=== PATIENT | female | born 1950 | race Caucasian/White ===

== ENCOUNTER → 2021-10-01 14:05 | Outpatient (BNVA) | payer MEDICARE, OTHER, SELFPAY | PROVIDERS: Family Provider Family Medicine; PCP Family Medicine; Visit Provider Surgery | DX: K21.9 Gastro-esophageal reflux disease without esophagitis (principal) | CPT/HCPCS: 99213 ==

== ENCOUNTER 2022-03-18 16:28 | Emergency (ER) | payer MEDICARE, OTHER, SELFPAY ==
[2022-03-18 16:32] VITALS: BP 159/81; PULSE 54; RESP 18; TEMP 36.7; O2SAT 97; BMI 31.1
--- NOTE | 2022-03-18 16:36 | ECG_ITS ---
[facility] Test Date: 2022-03-18 Pat Name: Chloé Ye Department: Room: Gender: Female Tobacco Buyer: : 1950 Requested By: Zac Collier Order Number: [id number] Micha MD: Shawna Gutiérrez M.D. Measurements Intervals [place] Rate: 54 P: 59 NE: 165 QRS: -57 QRSD: 91 T: 57 QT: 439 QTc: 419 Interpretive Statements SINUS BRADYCARDIA LEFT ANTERIOR FASCICULAR BLOCK [QRS AXIS <= -45, QR IN I, RS IN II] VOLTAGE CRITERIA FOR LVH No previous ECG available for comparison Electronically Signed On 03-19-2022 12:55:09 CDT by Shawna Gutiérrez M.D. [id number]
--- NOTE | 2022-03-18 16:44 | XRR_ITS ---
PROCEDURE INFORMATION: Exam: XR Chest Exam date and time: 03/18/2022 6:23 PM Age: 71 years old Clinical indication: Chest pressure and chest wall pain; Prior surgery; Surgery type: Had monitor inserted in heart; Additional info: Cp TECHNIQUE: Imaging protocol: Radiologic exam of the chest. Views: 1 view. COMPARISON: No relevant prior studies available. FINDINGS: Tubes, catheters and devices: Loop recorder device noted in the left chest wall. Lungs: Unremarkable. No consolidation. Pleural spaces: Unremarkable. No pleural effusion. No pneumothorax. Heart/Mediastinum: Unremarkable. No cardiomegaly. Bones/joints: Unremarkable. XR/XR chest 1V portable [id number] IMPRESSION: No acute findings.
[2022-03-18 17:49] LABS: Basophils % 0.7 %; Eosinophils # 0.6 10^3/uL (0.0-0.8); Eosinophils % 9.2 %; Hemoglobin 14.1 g/dL (11.5-15.3); Lymphocytes # 1.9 10^3/uL (0.8-4.8); Lymphocytes % 30.8 %; Mean Corpuscular HGB Conc 32.8 g/dL (30.0-36.0); Mean Corpuscular Hemoglobin 30.2 pg (28.0-34.0); Mean Corpuscular Volume 92.1 fl (81-99); Mean Platelet Volume 9.9 fL (7.4-10.4); Monocytes # 0.7 10^3/uL (0.2-0.9); Monocytes % 12.1 %; Neutrophils # 2.87 10^3/uL (1.8-7.7); Neutrophils % 46.9 %; Nucleated Red Blood Cells % 0 %; Platelet Count 245 10^3/cmm (130-400); Red Blood Count 4.67 10^6/uL (4.1-5.3); Red Cell Distribution Width 13.1 % (12.1-15.1); White Blood Count 6.1 10^3/uL (4.0-10.0)
[2022-03-18 18:18] LABS: Troponin(5th) Baseline 7 ng/L (0-10)
--- NOTE | 2022-03-18 18:21 | W.ED.CHESTPA ---
HPI - Chest Pain General: Chief Complaint: Chest Pain Stated Complaint: chest pain Time Seen by Provider: 03/18/22 18:09 History of Present Illness: Ms. Ye is a 71-year-old lady who presents to the emergency department due to chest discomfort. She reports onset of symptoms last night with left chest pain radiating down the left arm. This was with exertion however is currently resolved. She did have associated lightheaded feeling. Does report a history of similar episodes and currently has a loop recorder implanted. Otherwise denies significant changes in health. Denies other typical cardiac features. No other specific changes in health, exacerbating, or alleviating factors identified. Onset (ago): day(s) Timing of current episode: constant Prior episodes: Yes Onset: during exertion Pain location: left chest Pain radiation: left arm Severity: moderate Quality: aching Associated symptoms: Reports other (Lightheadedness) Review of Systems General: Reports: 10 or more systems reviewed and unremarkable except in HPI and below PFSH ED PFSH: Medical History (Updated 03/26/22 @ 00:01 by ) Dysphagia Gastritis Gastroesophageal reflux disease GERD (gastroesophageal reflux disease) Hiatal hernia Hypothyroidism Stroke Surgical History H/O bladder repair surgery H/O: hysterectomy History of tonsillectomy History of total left knee replacement History of total right knee replacement Family History Sister Diabetes Father Cancer Mother Cancer Social History Smoking and tobacco status: never smoked Alcohol intake: current Alcohol intake frequency: holidays/special occasions only Current occupational status: unemployed Physical Exam Const: COMMON NORMALS: alert GENERAL APPEARANCE: cooperative and well developed HENMT: COMMON NORMALS: normocephalic HEAD & SCALP: normocephalic THROAT: posterior oropharynx normal OTHER: Mild inferior left periorbital ecchymosis Eye: COMMON NORMALS: conjunctivae normal CONJUNCTIVA: Yes conjunctivae normal SCLERA: sclerae normal Neck/C-Spine: COMMON NORMALS: supple GENERAL: Yes trachea midline Resp: COMMON NORMALS: normal respiratory effort EFFORT & INSPECTION: Yes able to speak in complete sentences Cardio: COMMON NORMALS: regular rate and regular rhythm RATE: regular rate RHYTHM: regular rhythm GI: COMMON NORMALS: Soft to palpation PALPATION: Yes Soft to palpation and No Tenderness to palpation present (GI) Extremity: GENERAL: Yes normal exam except as noted and No edema Neuro: COMMON NORMALS: moves all extremities SENSORIUM/ORIENTATION: Yes alert and No Orientation impaired Psych: COMMON NORMALS: mental status grossly normal and Normal thought process present THOUGHT PROCESS: Normal thought process present Course ED course: - Patient was seen and evaluated by me at bedside - Patient placed on cardiac monitors, IV access obtained - Initial evaluation notable for exam as above - Labs and xrays personally interpreted by me. EKG notable for sinus bradycardia -Aspirin given - Labs notable for no leukocytosis, normal hemoglobin. Metabolic panel without significant derangement. Delta troponin at 2 hours is negative. D-dimer negative. - Imaging notable for no lobar consolidation or pneumothorax on chest x-ray. Given contusion/ecchymosis CT of the face was ordered and negative for acute pathology - Upon serial reexamination after treatment the patient was improved - Based on patient history, evaluation, and testing as interpreted the most likely cause of the patient's condition is chest pain of uncertain etiology - The results of ED evaluation were discussed with the patient including possible disposition options. I discussed risk stratification by heart score and estimated risk of major adverse cardiac events. The patient wishes to proceed with outpatient management. She has a outpatient stress test already scheduled. I discussed prescriptions and/or symptomatic cares (if applicable) including appropriate and responsible use, followup plan, and return precautions. The patient verbalized understanding and felt safe for discharge. - Patient discharged in satisfactory condition. Note: Click bubbles or prepopulated mullins in note writing are used for assistance with data collection and billing and are inherently more limited than narrative and other text portions of this note. Please use narrative for additional clinical history and defer to narrative/free test for any case of contradictory information. If information appears in only free text or click bubble it should be considered present or absent as reported. Please contact note principal technical writer for clarifications of clinical information or contradictory information. MDM is a brief summary, contradictory or erroneous seeming information should be clarified and full note should be reviewed. Vital Signs: Vital signs: Vital Signs Temperature 98.1 F 03/18/22 16:32 Pulse Rate 55 L 03/18/22 22:01 Respiratory Rate 16 03/18/22 22:01 Blood Pressure 168/75 03/18/22 22:01 Pulse Oximetry 97 03/18/22 22:01 Oxygen Delivery Me thod 03/18/22 18:38 MDM - Chest Pain Medical Decision Making 71-year-old lady presenting with chest pain. Negative ED evaluation for acute pathology requiring intervention. Patient is not low risk by heart score but prefers outpatient management. Strict follow-up plans and return precautions discussed. Medical Records I reviewed the patient's medical records. Lab Data I reviewed the patient's lab results. : 03/18/22 17:41 03/18/22 17:41 Radiology Impressions Chest X-Ray 03/18/22 16:44 IMPRESSION: No acute findings. Face CT 03/18/22 18:34 IMPRESSION: No acute findings. Laboratory Results WBC 6.1 10^3/uL (4.0-10.0) 03/18/22 17:41 RBC 4.67 10^6/uL (4.1-5.3) 03/18/22 17:41 Hgb 14.1 g/dL (11.5-15.3) 03/18/22 17:41 Hct 43.0 % (37.0-47.0) 03/18/22 17:41 MCV 92.1 fl (81-99) 03/18/22 17:41 MCH 30.2 pg (28.0-34.0) 03/18/22 17:41 MCHC 32.8 g/dL (30.0-36.0) 03/18/22 17:41 RDW 13.1 % (12.1-15.1) 03/18/22 17:41 Plt Count 245 10^3/cmm (130-400) 03/18/22 17:41 MPV 9.9 fL (7.4-10.4) 03/18/22 17:41 Neut % (Auto) 46.9 % 03/18/22 17:41 Lymph % (Auto) 30.8 % 03/18/22 17:41 [place] % (Auto) 12.1 % 03/18/22 17:41 Eos % (Auto) 9.2 % 03/18/22 17:41 Baso % (Auto) 0.7 % 03/18/22 17:41 Neut # (Auto) 2.87 10^3/uL (1.8-7.7) 03/18/22 17:41 Lymph # (Auto) 1.9 10^3/uL (0.8-4.8) 03/18/22 17:41 [place] # (Auto) 0.7 10^3/uL (0.2-0.9) 03/18/22 17:41 Eos # (Auto) 0.6 10^3/uL (0.0-0.8) 03/18/22 17:41 Baso # (Auto) 0.0 10^3/uL (0.0-0.1) 03/18/22 17:41 Nucleated RBC % (auto) 0 % 03/18/22 17:41 Nucleated RBCs # 0.0 /100WBC 03/18/22 17:41 D-Dimer 0.37 ug/mIFEU (0-0.59) 03/18/22 17:41 Sodium 140 mmol/L (136-145) 03/18/22 17:41 Potassium 3.9 mmol/L (3.5-5.1) 03/18/22 17:41 Chloride 103 mmol/L (98-107) 03/18/22 17:41 Carbon Dioxide 30 mmol/L (22-29) H 03/18/22 17:41 Anion Gap 10.9 (5-19) 03/18/22 17:41 BUN 8 mg/dL (8-23) 03/18/22 17:41 Creatinine 0.6 mg/dL (0.5-0.9) 03/18/22 17:41 GFR Calculation Not Reportable 03/18/22 17:41 Glucose 87 mg/dL (65-115) 03/18/22 17:41 Calculated Osmolality 288 mOsm/kg (285-295) 03/18/22 17:41 Calcium 9.3 mg/dL (8.5-10.5) 03/18/22 17:41 Total Bilirubin 0.4 mg/dL (0.15-1.2) 03/18/22 17:41 AST 17 U/L (0-32) 03/18/22 17:41 ALT 13 U/L (0-33) 03/18/22 17:41 Alkaline Phosphatase 57 U/L (35-105) 03/18/22 17:41 Troponin T Baseline 7 ng/L (0-10) 03/18/22 17:41 Troponin T 120 Minute 7.61 ng/L (0-10) 03/18/22 19:59 Delta Troponin T 0.61 ABS# (0-10) 03/18/22 19:59 NT-Pro-B Natriuret Pep 143 pg/mL (0-125) H 03/18/22 17:41 Total Protein 6.5 g/dL (6.6-8.7) L 03/18/22 17:41 Albumin 3.9 g/dL (3.5-5.2) 03/18/22 17:41 Globulin 2.6 g/dL (1.3-4.6) 03/18/22 17:41 Discharge Plan Discharge Patient Disposition: Home Clinical Impression: Chest pain Condition: Stable Prescriptions: No Action levothyroxine PO pantoprazole PO prednisone 10 mg tablet 10 mg PO DAILY Qty: 42 0RF Discharge Orders: Discharge ED (Routine); Ordered 03/18/22 Ordered By: Rajesh Wilkerson Referrals: Sean Pereira MD [Primary Care Provider] - Patient Instructions: Chest Pain (ED) Activity Restrictions/Additional Instructions: Thank you for visiting the emergency department. You were seen evaluated for chest pain. The exact cause of your symptoms is unclear though as discussed does require further evaluation which you are choosing to do in the outpatient setting. Please follow-up with your primary care provider and please ensure that you complete your stress test and echocardiogram. Return to the emergency department for worsening symptoms or anything else that you are concerned about and feel needs emergency department evaluation. Coding Level of Care Code ED Mechanical Laboratory Technician for Deepthi Fwd Exam Comprehensive
[2022-03-18 18:33] LABS: Alanine Aminotransferase 13 U/L (0-33); Albumin Level 3.9 g/dL (3.5-5.2); Alkaline Phosphatase 57 U/L (35-105); Aspartate Amino Transferase 17 U/L (0-32); Blood Urea Nitrogen 8 mg/dL (8-23); Calcium 9.3 mg/dL (8.5-10.5); Carbon Dioxide 30 mmol/L (22-29); Chloride 103 mmol/L (98-107); Globulin 2.6 g/dL (1.3-4.6); Glucose 87 mg/dL (65-115); NT Pro B Type Natriuretic Pept 143 pg/mL (0-125); Osmolality Calculated 288 mOsm/kg (285-295); Sodium 140 mmol/L (136-145); Total Bilirubin 0.4 mg/dL (0.15-1.2); Total Protein 6.5 g/dL (6.6-8.7)
--- NOTE | 2022-03-18 18:34 | CTR_ITS ---
PROCEDURE INFORMATION: Exam: CT Maxillofacial Without Contrast Exam date and time: 03/18/2022 8:49 PM Age: 71 years old Clinical indication: Eye pain; Left; Additional info: L periorbital pain and echymosis TECHNIQUE: Imaging protocol: Computed tomography of the of the face without contrast. Radiation optimization: All CT scans at this facility use at least one of these dose optimization techniques: automated exposure control; mA and/or kV adjustment per patient size (includes targeted exams where dose is matched to clinical indication); or iterative reconstruction. COMPARISON: No relevant prior studies available. RADIATION DOSE METRICS: Total DLP (mGy-cm): 537.98 FINDINGS: Orbital cavities: Orbits are normal. Globes are unremarkable. Bones/joints: No acute fracture. Paranasal sinuses: Normal. No air-fluid levels. Soft tissues: Unremarkable. CT/CT facial bones wo con* [id number] IMPRESSION: No acute findings.
[2022-03-18 18:38] VITALS: BP 205/88; PULSE 54; RESP 16; O2SAT 99
[2022-03-18 18:38] LABS: Anion Gap 10.9 (5-19); Potassium 3.9 mmol/L (3.5-5.1)
--- NOTE | 2022-03-18 18:44 | ECG_ITS ---
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 Measurements Intervals [place] Rate: 50 P: 58 [place]: 174 QRS: -48 QRSD: 109 T: 44 QT: 470 QTc: 429 Interpretive Statements SINUS BRADYCARDIA LEFT ANTERIOR FASCICULAR BLOCK MODERATE VOLTAGE CRITERIA FOR LVH, CONSIDER NORMAL VARIANT Compared to ECG 03/18/2022 16:36:11 No significant changes Electronically Signed On 03-19-2022 12:59:20 CDT by Shawna Gutiérrez M.D. [id number]
[2022-03-18] MEDS: aspirin 81 mg Chew Tablet 324 MG PO (18:45)
[2022-03-18 19:02] LABS: D Dimer 0.37 ug/mIFEU (0-0.59)
[2022-03-18 20:38] LABS: Troponin 5 2HR 7.61 ng/L (0-10)
[2022-03-18 21:23] LABS: Troponin 5 2HR Delta 0.61 ABS# (0-10)
[2022-03-18 22:01] VITALS: BP 168/75; PULSE 55; RESP 16; O2SAT 97
== END 2022-03-18 22:02 | disposition home or self-care (01) ==
PROVIDERS: Family Medicine; Emergency Provider Emergency Medicine; PCP Family Medicine Sports Medicine
DX: R07.9 Chest pain, unspecified (principal); Z86.73 Personal history of transient ischemic attack (TIA), and cerebral infarction without residual deficits
CPT/HCPCS: 36415; 70486; 71045; 80053; 83880; 84484; 85025; 85378; 93005; 99285

== ENCOUNTER → 2022-05-25 14:53 | Outpatient (BNVA) | payer MEDICARE, OTHER, SELFPAY | PROVIDERS: PCP Family Medicine Sports Medicine; Visit Provider Podiatrist Foot & Ankle Surgery | DX: M72.2 Plantar fascial fibromatosis (principal); M21.41 Flat foot [pes planus] (acquired), right foot; M21.42 Flat foot [pes planus] (acquired), left foot; M19.071 Primary osteoarthritis, right ankle and foot; M19.072 Primary osteoarthritis, left ankle and foot | CPT/HCPCS: 99214 ==

== ENCOUNTER 2023-01-05 06:00 | Outpatient (RCR) | payer MEDICARE, OTHER, SELFPAY | END 2023-02-04 23:59 | disposition home or self-care (01) | LOC: TPT 06:00 | PROVIDERS: Visit Provider Orthopaedic Surgery | DX: M25.562 Pain in left knee (principal) | CPT/HCPCS: 97110; 97163 ==

== ENCOUNTER 2023-02-05 06:00 | Outpatient (RCR) | payer MEDICARE, OTHER, SELFPAY | END 2023-03-06 23:59 | disposition home or self-care (01) | LOC: TPT 06:00 | PROVIDERS: Visit Provider Orthopaedic Surgery | DX: Z47.1 Aftercare following joint replacement surgery (principal); Z96.652 Presence of left artificial knee joint | CPT/HCPCS: 97110 ==

== ENCOUNTER 2023-03-07 06:00 | Outpatient (RCR) | payer MEDICARE, OTHER, SELFPAY | END 2023-03-09 23:59 | disposition home or self-care (01) | LOC: TPT 06:00 | PROVIDERS: Visit Provider Orthopaedic Surgery | DX: Z96.652 Presence of left artificial knee joint (principal); M25.562 Pain in left knee | CPT/HCPCS: 97110 ==

== ENCOUNTER 2023-03-29 17:45 | Emergency (ER) | payer MEDICARE, OTHER, SELFPAY ==
[2023-03-29 17:56] VITALS: BP 168/77; PULSE 61; RESP 15; TEMP 37.1; O2SAT 96; BMI 30.9
--- NOTE | 2023-03-29 18:23 | XRR_ITS ---
PROCEDURE INFORMATION: Exam: XR Chest Exam date and time: 03/29/2023 6:43 PM Age: 72 years old Clinical indication: Shortness of breath; Additional info: Syncope TECHNIQUE: Imaging protocol: Radiologic exam of the chest. Views: 1 view. COMPARISON: CR XR chest 1V portable [id number] 03/18/2022 6:23 PM FINDINGS: Tubes, catheters and devices: A metallic device projects over upper left heart border, similar to the finding on 03/18/2022. Lungs: There is no consolidation. Pleural spaces: There is no pleural effusion or pneumothorax. Heart/Mediastinum: Cardiomediastinal contours are unremarkable. Bones/joints: Bones are unremarkable. XR/XR chest 1V portable [id number] IMPRESSION: No acute findings.
--- NOTE | 2023-03-29 18:29 | ECG_ITS ---
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 Measurements Intervals [place] Rate: 56 P: 50 [place]: 175 QRS: -43 QRSD: 108 T: 50 QT: 470 QTc: 455 Interpretive Statements SINUS BRADYCARDIA LEFT AXIS DEVIATION [QRS AXIS < -30] PATTERN CONSISTENT WITH PULMONARY DISEASE VOLTAGE CRITERIA FOR LVH [MEETS CRITERIA IN ONE OF: R(aVL), S(V1), R(V5), R(V5/V6)+S(V1)] Compared to ECG 03/18/2022 21:15:19 Left-axis deviation now present Left anterior fascicular block no longer present Electronically Signed On 03-29-2023 21:14:50 CDT by Shawna Gutiérrez M.D. [id number]
[2023-03-29 18:49] LABS: Basophils % 0.4 %; Eosinophils # 0.3 10^3/uL (0.0-0.8); Eosinophils % 3.7 %; Lymphocytes # 1.1 10^3/uL (0.8-4.8); Lymphocytes % 14.5 %; Mean Corpuscular HGB Conc 33.7 g/dL (30-55); Mean Corpuscular Hemoglobin 30.7 pg (27-33); Mean Corpuscular Volume 91.1 fl (85-98); Mean Platelet Volume 10.2 fL (7.4-10.4); Monocytes # 0.5 10^3/uL (0.2-0.9); Monocytes % 6.1 %; Neutrophils # 5.87 10^3/uL (1.8-7.7); Nucleated Red Blood Cells % 0 %; Platelet Count 179 10^3/cmm (157-399); Red Blood Count 4.72 10^6/uL (3.85-5.65); White Blood Count 7.82 10^3/uL (3.29-11.43)
--- NOTE | 2023-03-29 18:52 | W.ED.SYNCOPE ---
HPI - Syncope General: Chief Complaint: Syncope Stated Complaint: sent by Chaz/high bp Time Seen by Provider: 03/29/23 18:02 History of Present Illness: Patient presents to the ER with complaints of near syncope earlier today at the [facility]. There clinic sent her here. Patient said at that time she was dizzy and lightheaded and just did not feel good. Patient did not pass out. Patient has had these episodes prior and been worked up. Patient does have a history of an old CVA with no deficit. Patient does have a loop recorder implanted and she transmits it every night. Patient says she is back to normal currently with no complaints. Patient is on 81 mg aspirin daily. Review of Systems General: Reports: 10 or more systems reviewed and unremarkable except in HPI and below PFSH ED PFSH: Medical History Dysphagia Gastritis Gastroesophageal reflux disease GERD (gastroesophageal reflux disease) Hiatal hernia Hypothyroidism Stroke Surgical History H/O bladder repair surgery H/O: hysterectomy History of tonsillectomy History of total left knee replacement History of total right knee replacement Family History Sister Diabetes Father Cancer Mother Cancer Social History Smoking and tobacco/nicotine status: never used tobacco/nicotine Second hand smoke exposure: No Alcohol intake: former Substance/Drug Use: never Adopted: No Caregiver/support person: No Lives independently: Yes Current occupational status: unemployed Pets and animals: No Do you think of yourself as: Straight/Heterosexual Current gender identity: Female Female Reproductive History: Spontaneous abortions: No Physical Exam Const: COMMON NORMALS: no acute distress, average body habitus, patient oriented x3, no limitations, healthy appearing, alert and well nourished HENMT: COMMON NORMALS: normocephalic, atraumatic, hearing grossly normal bilaterally, external ears normal, Normal external nose present, moist oral mucous membranes and oropharynx normal HEAD & SCALP: normocephalic and atraumatic NOSE: Normal external nose present EXTERNAL EAR: Yes external ears normal Eye: COMMON NORMALS: Equal, round and reactive pupils present, EOMs intact bilaterally, conjunctivae normal and no scleral icterus CONJUNCTIVA: Yes conjunctivae normal PUPIL: Yes Equal, round and reactive pupils present Neck/C-Spine: COMMON NORMALS: full ROM, no lymphadenopathy, supple, no meningeal signs, no JVD and Thyroid normal THYROID: Thyroid normal Chest: COMMONS NORMALS: normal inspection of the chest and normal palpation of entire chest wall Resp: COMMON NORMALS: normal respiratory effort, No retractions, No use of accessory muscles and clear to auscultation bilaterally AUSCULTATION: clear to auscultation bilaterally Cardio: COMMON NORMALS: no JVD, regular rate, regular rhythm, S1 normal heart sound present, S2 normal heart sound present, No gallops present (Cardio), No clicks present (Cardio), No murmurs present (Cardio) and No rub (Cardio) RATE: regular rate RHYTHM: regular rhythm HEART SOUNDS: S1 normal heart sound present and S2 normal heart sound present GI: COMMON NORMALS: Normal to inspection, nondistended, normoactive bowel sounds present, Soft to palpation, non-tender, No hepatosplenomegaly present and no masses PALPATION: Yes Soft to palpation and Yes No hepatosplenomegaly present : COMMON NORMALS: Yes no CVA tenderness BLADDER/KIDNEY EXAM: Yes no CVA tenderness Back/Pelvis: COMMON NORMALS: no CVA tenderness Neuro: COMMON NORMALS: patient oriented x3 SENSORIUM/ORIENTATION: Yes alert MENINGEAL SIGNS: Yes no meningeal signs Course Vital Signs: Vital signs: Vital Signs Temperature 98.8 F 03/29/23 17:56 Pulse Rate 61 03/29/23 17:56 Respiratory Rate 15 03/29/23 17:56 Blood Pressure 168/77 03/29/23 17:56 Pulse Oximetry 96 03/29/23 17:56 Oxygen Delivery Me thod Room Air 03/29/23 17:56 MDM - Syncope Medical Decision Making Presents today with near syncope. Patient has no other complaints and no acute findings. Lab work was essentially benign as well as chest x-ray and EKG does show bradycardia patient also has a implantable loop recorder that she gets downloaded every night. Patient will be discharged home with a diagnosis of near syncope. Patient should follow-up with her PCP and/or ecommerce marketing specialist within the next week. Differential Diagnosis Unlikely syncope due to orthostatic hypotension, vasovagal syncope, complete atrioventricular block, subarachnoid hemorrhage, pulmonary embolism or dehydration Medical Records I reviewed the patient's medical records. Lab Data I reviewed the patient's lab results. 03/29/23 18:44 03/29/23 18:44 Radiology Impressions Chest X-Ray 03/29/23 18:23 IMPRESSION: No acute findings. Laboratory Results WBC 7.82 10^3/uL (3.29-11.43) 03/29/23 18:44 RBC 4.72 10^6/uL (3.85-5.65) 03/29/23 18:44 Hgb 14.50 g/dL (11.27-16.99) 03/29/23 18:44 Hct 43.0 % (36-47) 03/29/23 18:44 MCV 91.1 fl (85-98) 03/29/23 18:44 MCH 30.7 pg (27-33) 03/29/23 18:44 MCHC 33.7 g/dL (30-55) 03/29/23 18:44 RDW 13.0 % (12.1-15.1) 03/29/23 18:44 Plt Count 179 10^3/cmm (157-399) 03/29/23 18:44 MPV 10.2 fL (7.4-10.4) 03/29/23 18:44 Neut % (Auto) 75.0 % 03/29/23 18:44 Lymph % (Auto) 14.5 % 03/29/23 18:44 [place] % (Auto) 6.1 % 03/29/23 18:44 Eos % (Auto) 3.7 % 03/29/23 18:44 Baso % (Auto) 0.4 % 03/29/23 18:44 Neut # (Auto) 5.87 10^3/uL (1.8-7.7) 03/29/23 18:44 Lymph # (Auto) 1.1 10^3/uL (0.8-4.8) 03/29/23 18:44 [place] # (Auto) 0.5 10^3/uL (0.2-0.9) 03/29/23 18:44 Eos # (Auto) 0.3 10^3/uL (0.0-0.8) 03/29/23 18:44 Baso # (Auto) 0.0 10^3/uL (0.0-0.1) 03/29/23 18:44 Nucleated RBC % (auto) 0 % 03/29/23 18:44 Nucleated RBCs # 0.0 /100WBC 03/29/23 18:44 Sodium 138 mmol/L (136-145) 03/29/23 18:44 Potassium 3.6 mmol/L (3.5-5.1) 03/29/23 18:44 Chloride 100 mmol/L (98-107) 03/29/23 18:44 Carbon Dioxide 31 mmol/L (22-29) H 03/29/23 18:44 Anion Gap 10.6 (5-19) 03/29/23 18:44 BUN 9 mg/dL (8-23) 03/29/23 18:44 Creatinine 0.6 mg/dL (0.5-0.9) 03/29/23 18:44 GFR Calculation Not Reportable 03/29/23 18:44 Glucose 153 mg/dL (65-115) H 03/29/23 18:44 Calculated Osmolality 288 mOsm/kg (285-295) 03/29/23 18:44 Calcium 8.5 mg/dL (8.5-10.5) 03/29/23 18:44 Total Bilirubin 0.9 mg/dL (0.15-1.2) 03/29/23 18:44 AST 28 U/L (0-32) 03/29/23 18:44 ALT 33 U/L (0-33) 03/29/23 18:44 Alkaline Phosphatase 56 U/L (35-105) 03/29/23 18:44 Total Protein 6.8 g/dL (6.6-8.7) 03/29/23 18:44 Albumin 4.6 g/dL (3.5-5.2) 03/29/23 18:44 Globulin 2.2 g/dL (1.3-4.6) 03/29/23 18:44 Urine Color Straw (Yellow) 03/29/23 18:58 Urine Appearance Clear (CLEAR) 03/29/23 18:58 Urine pH 7 (5-7) 03/29/23 18:58 Ur Specific [place] 1.005 (1.005-1.030) 03/29/23 18:58 Urine Protein Neg (Negative) 03/29/23 18:58 Urine Glucose (UA) Norm (Normal) 03/29/23 18:58 Urine Ketones Negative (Negative) 03/29/23 18:58 Urine Blood Neg (Negative) 03/29/23 18:58 Urine Nitrate Negative (Negative) 03/29/23 18:58 Urine Bilirubin Neg (Negative) 03/29/23 18:58 Urine Urobilinogen Norm mg/dL (Negative) 03/29/23 18:58 Ur Leukocyte Esterase Negative (Negative) 03/29/23 18:58 All radiology interpretation(s) finalized by discharge EKG Data EKG 1: I personally reviewed and interpreted this EKG as follows: EKG interpretation date: 03/29/23 EKG interpretation time: 18:29 Prior EKG tracings: not available for review Interpretation: EKG showed ventricular rate 56 bpm, [place] interval 175, QRS duration 108, QTc of 461, sinus bradycardia, left axis deviation, Discharge Plan Discharge Patient Disposition: Home Clinical Impression: Near syncope Condition: Stable Prescriptions: No Action diclofenac sodium [Voltaren Arthritis Pain] 1 % gel 2 g topical QID Qty: 100 0RF Rx Instructions: apply to single elbow, wrist or hand; for hand includes palm/fingers/back of hand aspirin [Adult Low Dose Aspirin] 81 mg tablet,delayed release (DR/EC) 81 mg PO DAILY (DME) Custom Sole Supports- 3/4 length sports style See Rx Instructions .Route .MEDSUPPLY Qty: 1 0RF Rx Instructions: As directed by TOOTIE&O pantoprazole 40 mg tablet,delayed release (DR/EC) 40 mg PO DAILY Qty: 90 0RF Discharge Orders: Discharge ED (Routine); Ordered 03/29/23 Ordered By: Patrick Yeung Referrals: Vania Godoy FNP [Primary Care Provider] - 1 week Patient Instructions: Near Syncope (ED) Activity Restrictions/Additional Instructions: Please follow-up with your family practice physician within the next 7 to 10 days as needed for further evaluation and treatment. Please feel free to return to the ER if symptoms return and/or worsen. Coding Level of Care Code ED Receivable Manager for Deepthi Osman
[2023-03-29 19:09] LABS: Alanine Aminotransferase 33 U/L (0-33); Albumin Level 4.6 g/dL (3.5-5.2); Alkaline Phosphatase 56 U/L (35-105); Anion Gap 10.6 (5-19); Aspartate Amino Transferase 28 U/L (0-32); Blood Urea Nitrogen 9 mg/dL (8-23); Calcium 8.5 mg/dL (8.5-10.5); Carbon Dioxide 31 mmol/L (22-29); Chloride 100 mmol/L (98-107); Globulin 2.2 g/dL (1.3-4.6); Glucose 153 mg/dL (65-115); Osmolality Calculated 288 mOsm/kg (285-295); Potassium 3.6 mmol/L (3.5-5.1); Sodium 138 mmol/L (136-145); Total Bilirubin 0.9 mg/dL (0.15-1.2); Total Protein 6.8 g/dL (6.6-8.7)
[2023-03-29 19:28] LABS: Add Urine Microscopic? NO; Charge for UA Resulting for Rev
[2023-03-29 19:36] LABS: Protein Urine Neg (Negative); Specific Gravity, Urine 1.005 (1.005-1.030); Urine Appearance Clear (CLEAR); Urine Color Straw (Yellow); pH Urine 7 (5-7)
[2023-03-29 19:37] LABS: Bilirubin Urine Neg (Negative); Blood Urine Neg (Negative); Glucose Urine UA Norm (Normal); Ketones Urine Negative (Negative); Leukocyte Esterase Urine Negative (Negative); Nitrate Urine Negative (Negative); Urobilinogen Urine Norm (Negative)
[2023-03-29 20:06] VITALS: BP 183/65; PULSE 50; RESP 16; O2SAT 98
[2023-03-29 20:26] VITALS: BP 183/65; PULSE 50; RESP 16; TEMP 37.1; O2SAT 98
== END 2023-03-29 20:27 | disposition home or self-care (01) ==
PROVIDERS: Emergency Provider Emergency Medicine; PCP Nurse Practitioner Family
DX: R55 Syncope and collapse (principal); Z79.82 Long term (current) use of aspirin; Z86.73 Personal history of transient ischemic attack (TIA), and cerebral infarction without residual deficits
CPT/HCPCS: 71045; 80053; 81003; 85025; 93005; 99285

== ENCOUNTER 2023-08-03 06:00 | Outpatient (RCR) | payer MEDICARE, OTHER, SELFPAY | END 2023-08-05 23:59 | disposition home or self-care (01) | LOC: TPT 06:00 | PROVIDERS: PCP Family Medicine; Visit Provider Physician Assistant | DX: M70.62 Trochanteric bursitis, left hip (principal) | CPT/HCPCS: 97162 ==

== ENCOUNTER 2023-08-06 06:00 | Outpatient (RCR) | payer MEDICARE, OTHER, SELFPAY | END 2023-09-05 23:59 | disposition home or self-care (01) | LOC: TPT 06:00 | PROVIDERS: PCP Family Medicine; Visit Provider Physician Assistant | DX: M70.62 Trochanteric bursitis, left hip (principal) | CPT/HCPCS: 97110 ==

== ENCOUNTER 2023-09-06 06:00 | Outpatient (RCR) | payer MEDICARE, OTHER, SELFPAY | END 2023-09-16 23:59 | disposition home or self-care (01) | LOC: TPT 06:00 | PROVIDERS: PCP Family Medicine; Visit Provider Physician Assistant | DX: M70.62 Trochanteric bursitis, left hip (principal) | CPT/HCPCS: 97110 ==

== ENCOUNTER → 2024-03-09 10:10 | Outpatient (BNVA) | payer MEDICARE, OTHER, SELFPAY | PROVIDERS: PCP Nurse Practitioner Family; Visit Provider Orthopaedic Surgery | DX: M54.2 Cervicalgia (principal) | CPT/HCPCS: 72050; 99213 ==

== ENCOUNTER 2024-03-27 06:00 | Outpatient (RCR) | payer MEDICARE, OTHER, SELFPAY | END 2024-04-06 23:59 | disposition home or self-care (01) | LOC: TPT 06:00 | PROVIDERS: Visit Provider Orthopaedic Surgery | DX: M54.2 Cervicalgia (principal); G89.29 Other chronic pain | CPT/HCPCS: 97110; 97162 ==

== ENCOUNTER 2024-04-07 06:00 | Outpatient (RCR) | payer MEDICARE, OTHER, SELFPAY | END 2024-05-02 23:59 | disposition home or self-care (01) | LOC: TPT 06:00 | PROVIDERS: Visit Provider Orthopaedic Surgery | DX: M54.2 Cervicalgia (principal); G89.29 Other chronic pain | CPT/HCPCS: 97110; 97140 ==

== ENCOUNTER → 2024-05-11 15:30 | Outpatient (BNVA) | payer MEDICARE, OTHER, SELFPAY | PROVIDERS: PCP Nurse Practitioner Family; Visit Provider Orthopaedic Surgery | DX: M54.2 Cervicalgia (principal) | CPT/HCPCS: 99213 ==

== ENCOUNTER 2024-05-29 14:41 | Emergency (ER) | payer MEDICARE, OTHER, SELFPAY ==
[2024-05-29 15:22] VITALS: BP 170/77; PULSE 61; RESP 16; TEMP 36.7; O2SAT 95
--- NOTE | 2024-05-29 17:19 | ECG_ITS ---
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 Measurements Intervals [place] Rate: 60 P: 69 [place]: 165 QRS: -9 QRSD: 95 T: 75 QT: 418 QTc: 418 Interpretive Statements SINUS RHYTHM LEFT VENTRICULAR HYPERTROPHY AND ST-T CHANGE [VOLTAGE CRITERIA PLUS ST/T ABNORMALITY] POSSIBLE ANTERIOR MYOCARDIAL INFARCTION , PROBABLY OLD [30 ms Q WAVE IN V3/V4, OR R < 0.2 mV IN V4] Compared to ECG 03/29/2023 18:29:45 ST (T wave) deviation now present Myocardial infarct finding now present Sinus bradycardia no longer present Left-axis deviation no longer present Electronically Signed On 05-29-2024 20:24:33 PROCESS SAFETY SPECIALIST by Michael Pugh M.D. [id number]
--- NOTE | 2024-05-29 17:19 | XRR_ITS ---
PROCEDURE INFORMATION: Exam: XR Chest Exam date and time: 05/29/2024 5:34 PM Age: 73 years old Clinical indication: Chest wall pain and sternal or substernal pain; Additional info: Anterior chest wall pain/thoracic back pain TECHNIQUE: Imaging protocol: Radiologic exam of the chest. Views: 2 views. COMPARISON: CR XR chest 1V portable [id number] 03/29/2023 6:43 PM FINDINGS: Tubes, catheters and devices: Cardiac loop recorder device noted. Lungs: Perihilar strandy opacities reflecting atelectasis or scarring. No new focal airspace infiltrate. Bibasilar atelectasis. Pleural spaces: No sizable pleural effusion or pneumothorax. Heart/Mediastinum: Unremarkable. No cardiomegaly. Bones/joints: Unremarkable. XR/XR chest 2V* [id number] IMPRESSION: As above.
--- NOTE | 2024-05-29 17:38 | W.ED.BACK ---
HPI - Back Pain/Injury General: Chief Complaint: Back Pain/Injury Stated Complaint: Sternum pain post fall 05/22 Time Seen by Provider: 05/29/24 17:08 Source: patient Mode of arrival: ambulatory Limitations: no limitations History of Present Illness: Patient is a 73-year-old female who presents the emergency department complaining of anterior chest wall pain for the past week. Patient states her was helping her up out of a chair by grabbing her arms and pulling her, patient states she felt a sudden pop to her sternal region and that this pain has worsened since onset. States she attempted to treat at home with heat, but this did not improve over the past week so she was told to present to the emergency department by primary care. Patient notes that the pain is extending to her back, and across both sides of her chest. Pain has been constant since onset, it is made worse by deep breathing and by movement. She states she does have a history of a stroke and currently has a loop recorder she is wearing. She is denying any shortness of breath, palpitations, hemoptysis, syncope, or other concerning symptoms at this time. Denies any trauma to her chest. Denies history of heart attacks or cardiac cath. She did not try any medications for her pain. Her vitals at this time essentially stable, blood pressure mildly elevated. MD elicited complaint: back pain and other (Anterior chest wall pain) Onset (ago): week(s) (1) Timing: constant Severity: moderate Similar Symptoms Previously: No Quality: aching Exacerbating factors: movement and deep breaths Relieving factors: immobilization Context: other (Patient's spouse pulled on her to help get out of chair, felt a pop in chest) Associated symptoms: Deny abdominal pain, chills, dysuria, fatigue, fever(s), nausea or vomiting Treatments prior to arrival: heat therapy Related Data Home Medications Medication Instructions Recorded Confirmed apremilast 30 mg tablet (Otezla) 30 mg PO BID 03/09/24 05/11/24 metoprolol tartrate 25 mg tablet 12.5 mg PO DAILY 03/09/24 05/11/24 Previous Rx's Medication Instructions Recorded diclofenac sodium 1 % topical gel 2 g topical QID #100 grams 05/25/22 (Voltaren Arthritis Pain) Custom Sole Supports- 3/4 length #1 ea 07/24/22 sports style aspirin 81 mg tablet,delayed 81 mg PO DAILY 90 days #90 tabs 09/22/23 release (Adult Low Dose Aspirin) atorvastatin 40 mg tablet 40 mg PO DAILY 90 days #90 tabs 09/22/23 pantoprazole 40 mg tablet,delayed 40 mg PO DAILY 90 days #90 tabs 09/22/23 release triamcinolone acetonide 0.1 % 1 applic topical BID #80 grams 09/22/23 topical cream prednisone 20 mg tablet 20 mg PO DAILY #15 tabs 03/09/24 prednisone 20 mg tablet 20 mg PO ONCE 5 days #5 tabs 05/29/24 Allergies Allergy/AdvReac Type Severity Reaction Status Date / Time Penicillins Allergy Unknown unknown Verified 05/29/24 15:26 tape adhesive Allergy Intermediate rash Uncoded 05/29/24 15:26 Review of Systems General: Reports: 10 or more systems reviewed and unremarkable except in HPI and below Const: Denies: fever(s), chills or fatigue Eyes: Denies: change in vision ENMT: Denies: throat pain, ear or mastoid pain or nasal discharge Card: Reports: chest pain; Denies: palpitations, swelling of feet/ankles or lightheadedness Resp: Denies: dyspnea, productive cough or wheezing GI: Denies: abdominal pain, nausea, vomiting, diarrhea or constipation : Denies: flank pain, difficulty voiding, dysuria or urinary frequency Musc: Reports: back pain; Denies: neck pain or joint pain Skin/Breast: Denies: rash Neuro: Denies: headache(s), numbness in extremities or weakness in extremities PFSH ED PFSH: Medical History Stroke Gastroesophageal reflux disease Hypothyroidism GERD (gastroesophageal reflux disease) Dysphagia Gastritis Hiatal hernia Surgical History History of tonsillectomy H/O: hysterectomy H/O bladder repair surgery History of total right knee replacement History of total left knee replacement Family History Sister Diabetes Father Cancer Mother Cancer Social History Smoking and tobacco/nicotine status: unknown if used tobacco/nicotine Second hand smoke exposure: No Alcohol intake: former Substance/Drug Use: never Adopted: No Caregiver/support person: No Lives independently: Yes Current occupational status: unemployed Pets and animals: No Do you think of yourself as: Straight/Heterosexual Current gender identity: Female Female Reproductive History: Spontaneous abortions: No Physical Exam Const: COMMON NORMALS: no acute distress, patient oriented x3 and no limitations GENERAL APPEARANCE: cooperative, comfortable and well developed ORIENTATION/CONSCIOUSNESS: Yes awake HENMT: COMMON NORMALS: normocephalic, atraumatic, hearing grossly normal bilaterally, moist oral mucous membranes and oropharynx normal HEAD & SCALP: normocephalic and atraumatic Eye: COMMON NORMALS: Equal, round and reactive pupils present, EOMs intact bilaterally and conjunctivae normal CONJUNCTIVA: Yes conjunctivae normal PUPIL: Yes Equal, round and reactive pupils present Neck/C-Spine: COMMON NORMALS: full ROM, supple and no JVD Chest: COMMONS NORMALS: normal inspection of the chest OTHER: Palpation of the sternum reveals reproducible tenderness to palpation. Also reproducible tenderness to palpation to the left and right anterior chest wall. No crepitus or palpable rib fractures. No signs of trauma. Resp: COMMON NORMALS: normal respiratory effort, No retractions, No use of accessory muscles and clear to auscultation bilaterally AUSCULTATION: clear to auscultation bilaterally Cardio: COMMON NORMALS: no JVD, regular rate, regular rhythm, No clicks present (Cardio), No murmurs present (Cardio) and No rub (Cardio) RATE: regular rate RHYTHM: regular rhythm Back/Pelvis: COMMON NORMALS: thoracic and lumbar spine normal to inspection and thoraco-lumbar ROM normal OTHER: Mild reproducible tenderness to palpation to the upper thoracic spine Extremity: COMMON NORMALS: normal to inspection, full ROM and capillary refill normal Neuro: COMMON NORMALS: patient oriented x3 Psych: COMMON NORMALS: mental status grossly normal and Normal thought process present THOUGHT PROCESS: Normal thought process present Skin: COMMON NORMALS: no rashes or lesions noted GENERAL SKIN EXAM: no rashes or lesions noted Course Vital Signs: Vital signs: Vital Signs Temperature 98.1 F 05/29/24 15:22 Pulse Rate 61 05/29/24 19:37 Respiratory Rate 16 05/29/24 19:37 Blood Pressure 176/80 05/29/24 19:37 Pulse Oximetry 97 05/29/24 19:37 Oxygen Delivery Me thod Room Air 05/29/24 19:37 MDM - Back Pain/Injury Medical Decision Making A week ago patient reported a musculoskeletal type injury where she felt a pop in her sternal region after her pulled her up off of couch/chair. Pain has been persisting prompting her to come to the emergency department. A chest x-ray here did not show any significant acute findings or fractures. EKG was obtained due to her slight cardiac history and location of pain, showing no signs of a STEMI. This EKG was reviewed with physician. Her lab work normal including negative troponin. I did speak to Dr. Cisneros here in the emergency department about this patient's case, agrees that this is likely musculoskeletal and can be referred to outpatient primary care and/or her government services professional. She does note improvement of her pain here after receiving Decadron and Toradol. Discussed with her taking small dose prednisone at home as well as beginning to take ibuprofen, she agrees with this plan and will be discharged at this time. She does have a history of high blood pressure, other than her mildly elevated pressure here in the emergency department, vitals have remained stable. Labs 05/29/24 19:06 05/29/24 19:06 Radiology Impressions Chest X-Ray 05/29/24 17:19 IMPRESSION: As above. Laboratory Results WBC 5.26 10^3/uL (3.29-11.43) 05/29/24 19:06 RBC 4.70 10^6/uL (3.85-5.65) 05/29/24 19:06 Hgb 14.30 g/dL (11.27-16.99) 05/29/24 19:06 Hct 43.1 % (36-47) 05/29/24 19:06 MCV 91.7 fl (85-98) 05/29/24 19:06 MCH 30.4 pg (27-33) 05/29/24 19:06 MCHC 33.2 g/dL (30-55) 05/29/24 19:06 RDW 13.2 % (12.1-15.1) 05/29/24 19:06 Plt Count 208 10^3/cmm (157-399) 05/29/24 19:06 MPV 10.7 fL (7.4-10.4) H 05/29/24 19:06 Neut % (Auto) 68.9 % 05/29/24 19:06 Lymph % (Auto) 20.2 % 05/29/24 19:06 Brewster % (Auto) 5.3 % 05/29/24 19:06 Eos % (Auto) 4.6 % 05/29/24 19:06 Baso % (Auto) 0.6 % 05/29/24 19:06 Neut # (Auto) 3.63 10^3/uL (1.8-7.7) 05/29/24 19:06 Lymph # (Auto) 1.1 10^3/uL (0.8-4.8) 05/29/24 19:06 Brewster # (Auto) 0.3 10^3/uL (0.2-0.9) 05/29/24 19:06 Eos # (Auto) 0.2 10^3/uL (0.0-0.8) 05/29/24 19:06 Baso # (Auto) 0.0 10^3/uL (0.0-0.1) 05/29/24 19:06 Nucleated RBC % (auto) 0 % 05/29/24 19:06 Nucleated RBCs # 0.0 /100WBC 05/29/24 19:06 Sodium 138 mmol/L (136-145) 05/29/24 19:06 Potassium 4.0 mmol/L (3.5-5.1) 05/29/24 19:06 Chloride 104 mmol/L (98-107) 05/29/24 19:06 Carbon Dioxide 27 mmol/L (22-29) 05/29/24 19:06 Anion Gap 11.0 (5-19) 05/29/24 19:06 BUN 10 mg/dL (8-23) 05/29/24 19:06 Creatinine 0.4 mg/dL (0.5-0.9) L 05/29/24 19:06 GFR Calculation Not Reportable 05/29/24 19:06 Glucose 95 mg/dL (65-115) 05/29/24 19:06 Calculated Osmolality 285 mOsm/kg (285-295) 05/29/24 19:06 Calcium 9.1 mg/dL (8.5-10.5) 05/29/24 19:06 Total Bilirubin 0.6 mg/dL (0.15-1.2) 05/29/24 19:06 AST 17 U/L (0-32) 05/29/24 19:06 ALT 15 U/L (0-33) 05/29/24 19:06 Alkaline Phosphatase 71 U/L (35-105) 05/29/24 19:06 Troponin T Baseline 8 ng/L (0-10) 05/29/24 19:06 Total Protein 6.7 g/dL (6.6-8.7) 05/29/24 19:06 Albumin 4.0 g/dL (3.5-5.2) 05/29/24 19:06 Globulin 2.7 g/dL (1.3-4.6) 05/29/24 19:06 All radiology interpretation(s) finalized by discharge EKG Data EKG 1: I personally reviewed and interpreted this EKG as follows: EKG interpretation date: 05/29/24 EKG interpretation time: 17:31 Prior EKG tracings: available for review Interpretation: 1731: Normal sinus rhythm. Rate 60. No STEMI. Reviewed with physician. Discharge Plan Discharge Patient Disposition: Home Clinical Impression: Intercostal muscle strain Qualifiers: Encounter type: initial encounter Qualified Code(s): S29.011A - Strain of muscle and tendon of front wall of thorax, initial encounter Condition: Stable Prescriptions: New prednisone 20 mg tablet 20 mg PO ONCE 5 Days Qty: 5 0RF No Action aspirin [Adult Low Dose Aspirin] 81 mg tablet,delayed release (DR/EC) 81 mg PO DAILY 90 Days Qty: 90 3RF atorvastatin 40 mg tablet 40 mg PO DAILY 90 Days Qty: 90 3RF pantoprazole 40 mg tablet,delayed release (DR/EC) 40 mg PO DAILY 90 Days Qty: 90 3RF triamcinolone acetonide 0.1 % cream 1 applic topical BID Qty: 80 3RF diclofenac sodium [Voltaren Arthritis Pain] 1 % gel 2 g topical QID Qty: 100 0RF Rx Instructions: apply to single elbow, wrist or hand; for hand includes palm/fingers/back of hand metoprolol tartrate 25 mg tablet 12.5 mg PO DAILY Otezla 30 mg tablet 30 mg PO BID prednisone 20 mg tablet 20 mg PO DAILY Qty: 15 0RF Rx Instructions: 60mg daily for 3 days 40mg dialy for 2 days 20mg dialy for 2 days (DME) Custom Sole Supports- 3/4 length sports style See Rx Instructions .Route .MEDSUPPLY Qty: 1 0RF Rx Instructions: As directed by [facility] Discharge Orders: Discharge ED (Routine); Ordered 05/29/24 Ordered By: Rocco Amaro Patient Instructions: Costochondritis (ED) Activity Restrictions/Additional Instructions: See attached patient instructions for further education. Please take medications as prescribed. Your cardiac workup today in the emergency department was normal, however please follow-up with your primary care and/or government services professional on an outpatient basis. Please monitor your condition closely and return with any new or concerning symptoms. 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
[2024-05-29] MEDS: dexamethasone 10 mg/mL INJ 8 MG IM (17:42)
[2024-05-29] MEDS: ketorolac 60 mg/2 mL INJ IM (17:42)
[2024-05-29 19:17] LABS: Basophils % 0.6 %; Eosinophils # 0.2 10^3/uL (0.0-0.8); Eosinophils % 4.6 %; Hematocrit 43.1 % (36-47); Lymphocytes # 1.1 10^3/uL (0.8-4.8); Lymphocytes % 20.2 %; Mean Corpuscular HGB Conc 33.2 g/dL (30-55); Mean Corpuscular Hemoglobin 30.4 pg (27-33); Mean Corpuscular Volume 91.7 fl (85-98); Mean Platelet Volume 10.7 fL (7.4-10.4); Monocytes # 0.3 10^3/uL (0.2-0.9); Monocytes % 5.3 %; Neutrophils # 3.63 10^3/uL (1.8-7.7); Neutrophils % 68.9 %; Nucleated Red Blood Cells % 0 %; Platelet Count 208 10^3/cmm (157-399); Red Cell Distribution Width 13.2 % (12.1-15.1); White Blood Count 5.26 10^3/uL (3.29-11.43)
[2024-05-29 19:32] LABS: Alanine Aminotransferase 15 U/L (0-33); Alkaline Phosphatase 71 U/L (35-105); Aspartate Amino Transferase 17 U/L (0-32); Blood Urea Nitrogen 10 mg/dL (8-23); Calcium 9.1 mg/dL (8.5-10.5); Carbon Dioxide 27 mmol/L (22-29); Chloride 104 mmol/L (98-107); Creatinine Clr Calc Pharmacy 57.0907; Globulin 2.7 g/dL (1.3-4.6); Glucose 95 mg/dL (65-115); Osmolality Calculated 285 mOsm/kg (285-295); Sodium 138 mmol/L (136-145); Total Bilirubin 0.6 mg/dL (0.15-1.2); Total Protein 6.7 g/dL (6.6-8.7)
[2024-05-29 19:37] VITALS: BP 176/80; PULSE 61; RESP 16; O2SAT 97
[2024-05-29 19:44] LABS: Troponin(5th) Baseline 8 ng/L (0-10)
[2024-05-29 20:04] VITALS: BP 176/80; PULSE 62; O2SAT 97
== END 2024-05-29 20:04 | disposition home or self-care (01) ==
PROVIDERS: Emergency Provider Physician Assistant
DX: S29.011A Strain of muscle and tendon of front wall of thorax, initial encounter (principal); Z79.82 Long term (current) use of aspirin; Z86.73 Personal history of transient ischemic attack (TIA), and cerebral infarction without residual deficits; X58.XXXA Exposure to other specified factors, initial encounter
CPT/HCPCS: 36415; 71046; 80053; 84484; 85025; 93005; 96372; 99285; J1100; J1885

== ENCOUNTER 2024-06-22 14:41 | Outpatient (CLI) | payer MEDICARE, OTHER, SELFPAY ==
--- NOTE | 2024-06-22 15:15 | CT_ITS ---
WS: [id number] CT chest w con* [id number] HISTORY: R07.89 - Other chest pain TECHNIQUE: Axial imaging performed through the thorax. Coronal and sagittal reformats are submitted. All CT scans at [facility] use at least one of these dose optimization techniques: automated exposure control; mA and/or kV adjustment per patient size (includes targeted exams where dose is mat ched to clinical indication); or iterative reconstruction. CONTRAST: Omnipaque 350; 100 mL IV. DLP: 280.11 mGy.cm COMPARISON: None available. Lungs and central airway: Platelike atelectasis along the RIGHT minor fissure. Scattered tiny microno dules in the periphery of both lungs. No pulmonary mass, nodule or pneumonia. Pleura: Normal. No pleural effusion. Heart and pericardium: Normal size heart with no pericardial effusion. Mediastinum and shalom: No mediastinal or hilar adenopathy. Vessels: Mild atherosclerosis aorta. Normal size pulmonary artery. Chest wall and lower neck: Cardiac loop recorder in the anterior LEFT thorax. Upper abdomen: Small hiatal hernia. Cholelithiasis without evidence for acute cholecystitis. Visualiz ed liver is negative. No adrenal mass. Osseous structures: Increase in thoracic kyphosis. Healing fracture in the superior sternal body with adjacent soft tissue prominence. No rib fracture. CT/CT chest w con* [id number] IMPRESSION: 1. Partial healing superior, nondisplaced sternal body fracture. There is a sm all amount of associated soft tissue which may be residual hematoma post fract ure. No underlying bone mass identified. Consider follow-up chest CT in 3 month s to ensure there is continued healing of the fracture and no underlying bone l esion resulting in a pathologic fracture. 2. No pulmonary mass or pneumonia. 3. No adenopathy. 4. Cholelithiasis without acute cholecystitis. 5. Small hiatal hernia.
[2024-06-22] MEDS: iohexol 350 mg/mL 500 mL Btl (per mL) IV (15:26)
== END 2024-06-22 14:42 | disposition home or self-care (01) ==
LOC: RAD 14:42
PROVIDERS: PCP Nurse Practitioner Family; Visit Provider Nurse Practitioner Family
DX: R07.89 Other chest pain (principal); S29.9XXA Unspecified injury of thorax, initial encounter; S22.20XA Unspecified fracture of sternum, initial encounter for closed fracture; K80.20 Calculus of gallbladder without cholecystitis without obstruction; K44.9 Diaphragmatic hernia without obstruction or gangrene; J98.11 Atelectasis; I70.0 Atherosclerosis of aorta; M40.294 Other kyphosis, thoracic region; X58.XXXA Exposure to other specified factors, initial encounter
CPT/HCPCS: 71260; 72050; 72072; 99213

== ENCOUNTER → 2024-08-03 16:01 | Outpatient (BNVA) | payer MEDICARE, OTHER, SELFPAY | PROVIDERS: PCP Nurse Practitioner Family; Visit Provider Orthopaedic Surgery | DX: S22.22XA Fracture of body of sternum, initial encounter for closed fracture (principal); W19.XXXA Unspecified fall, initial encounter; Y92.009 Unspecified place in unspecified non-institutional (private) residence as the place of occurrence of the external cause; M54.6 Pain in thoracic spine | CPT/HCPCS: 72072; 99213 ==

== ENCOUNTER → 2024-08-31 15:59 | Outpatient (BNVA) | payer MEDICARE, OTHER, SELFPAY | PROVIDERS: PCP Family Medicine; Visit Provider Family Medicine | DX: I10 Essential (primary) hypertension (principal); E03.9 Hypothyroidism, unspecified; M81.0 Age-related osteoporosis without current pathological fracture; K21.9 Gastro-esophageal reflux disease without esophagitis; E78.2 Mixed hyperlipidemia; L40.9 Psoriasis, unspecified | CPT/HCPCS: 82306; 82310; 82607; 83970; 84439; 84443 ==

== ENCOUNTER → 2024-09-21 14:42 | Outpatient (BNVA) | payer MEDICARE, OTHER, SELFPAY | PROVIDERS: PCP Family Medicine; Visit Provider Emergency Medicine | DX: J06.9 Acute upper respiratory infection, unspecified (principal); R05.9 Cough, unspecified | CPT/HCPCS: 87400; 87426 ==

== ENCOUNTER 2025-04-26 11:28 | Outpatient (RCR) | payer MEDICARE, OTHER, SELFPAY | END 2025-05-06 23:59 | disposition home or self-care (01) | LOC: TPT 11:28 | PROVIDERS: Visit Provider Orthopaedic Surgery | DX: Z47.89 Encounter for other orthopedic aftercare (principal) | CPT/HCPCS: 97110; 97161 ==

== ENCOUNTER 2025-04-30 14:47 | Outpatient (CLI) | payer MEDICARE, OTHER, SELFPAY ==
--- NOTE | 2025-04-30 14:30 | USCV_ITS ---
Chloé Ye Age: 74 Gender: F : 1950 Exam Date: 04/30/2025 14:58 Ordering Phys: Joelle Sheth MD Technologist: DYLAN Exam Location: [facility] [place] Indication: rt arm pain, status post rotator cuff surgery in february HISTORY: Upper extremity pain. PROCEDURES: Venous duplex imaging was performed in only the right upper extremity. The following venous structures were evaluated: internal jugular vein, subclavian vein, axillary vein, and brachial veins. In addition, the basilic vein, cephalic vein, radial vein, and ulnar vein. FINDINGS: Normal 2-D, color Doppler and phasicity noted in ther right upper extremity venous system extending from the right internal jugular vein through the main forearm. No thrombosis or occlusion noted. CONCLUSIONS No evidence of thrombus of the right upper extremity veins. Allan Jones MD (Electronically Signed) Final Date: 30 April 2025 15:53 S
== END 2025-04-30 14:48 | disposition home or self-care (01) ==
LOC: RAD 14:48
PROVIDERS: PCP Family Medicine; Visit Provider Family Medicine
DX: M79.601 Pain in right arm (principal); M79.89 Other specified soft tissue disorders; Z98.890 Other specified postprocedural states
CPT/HCPCS: 93971

== ENCOUNTER 2025-05-18 15:29 | Outpatient (RCR) | payer MEDICARE, OTHER, SELFPAY | END 2025-06-06 23:59 | disposition home or self-care (01) | LOC: TPT 15:29 | PROVIDERS: PCP Family Medicine; Visit Provider Orthopaedic Surgery | DX: Z98.890 Other specified postprocedural states (principal) | CPT/HCPCS: 97110 ==

== ENCOUNTER → 2025-05-24 15:26 | Outpatient (BNVA) | payer MEDICARE, OTHER, SELFPAY | PROVIDERS: PCP Family Medicine; Visit Provider Family Medicine | DX: L40.9 Psoriasis, unspecified (principal); K92.1 Melena; I10 Essential (primary) hypertension; E78.2 Mixed hyperlipidemia; E03.9 Hypothyroidism, unspecified; K21.9 Gastro-esophageal reflux disease without esophagitis; Z11.59 Encounter for screening for other viral diseases; M25.562 Pain in left knee | CPT/HCPCS: 80053; 80061; 82306; 83540; 84439; 84443; 85025; 86803; G0328 ==